=== PATIENT | female | born 1960 | race Caucasian/White ===

== ENCOUNTER 2017-06-12 13:40 | Day surgery (SDC) | payer OTHER ==
[~2017-06-12] VITALS: Ht 144.8 cm; Wt 51.9 kg
[2017-06-12 14:20] VITALS: Ht 144.8 cm; Wt 51.9 kg
[2017-06-12] MEDS ORDERED: ACAR25TA8 PO (14:30)
[2017-06-12] MEDS ORDERED: PRAV10TA43 PO (14:30)
[2017-06-12] MEDS ORDERED: BENA20TA48 PO (14:30)
[2017-06-12 14:42] VITALS: BP 157/70; PULSE 61; RESP 12
--- NOTE | 2017-06-12 15:04 | OPPN ---
Date/Time of Note Date/Time of Note DATE: 06/12/17 TIME: 15:02 Operative Report Preoperative Diagnosis screening colonoscopy Postoperative Diagnosis normal colon Operation/Procedure Performed colonoscopy Surgeon see signature line scheduling assistant none Anesthesia: moderate sedation (versed 2mg/fentanyl 50 mcg total moderate sedation time 15 mts) Estimated blood loss: none Transfusion Required none Specimen none Grafts/Implants none Complications none DONTA MENESES MD Jun 12, 2017 15:04
[2017-06-12] MEDS ORDERED: FENTAnyl 50 MCG/ML VIAL ONE (15:05)
[2017-06-12] MEDS ORDERED: MIDAZOLAM 1 MG/ML 2 ML INJ ONE (15:06)
--- NOTE | 2017-06-12 19:08 | GILP ---
DATE OF PROCEDURE: 06/12/2017 PREOPERATIVE DIAGNOSIS: Screening colonoscopy. PROCEDURE DONE: Colonoscopy up to cecum. SEDATION: Moderate sedation, 15 minutes total time. She received 2 mg IV Versed and 50 mcg of fent anyl. PROCEDURE IN DETAIL: After obtaining informed consent, she was sedated, monitored on oximetry, EKG , blood pressure. Rectal exam done, which was unremarkable. Advanced a pediatric colonoscope all t he way to cecum. Appendiceal opening and ileocecal valve identified. Tortuous colon was noted, lef t colon and right colon. Cecum, ascending colon normal. Transverse colon, descending colon normal. Sigmoid colon normal except for tortuosity. The rectum, including retroflexion, normal. Grade I hemorrhoids noted. Upon removal of scope, patient had no complication. PLAN: Will be to advise her to follow with you. Yearly occult blood and repeat colonoscopy in 10 y ears. Dictated By: DONTA ENCARNACION Conf#: [id number] DID#: [id number] CC: Primary Care Physician;*EndCC*
== END 2017-06-12 15:29 | disposition home or self-care (01) ==
LOC: GIL 13:40
PROVIDERS: ATTEND Internal Medicine
DX: Z12.11 Encounter for screening for malignant neoplasm of colon (principal); E11.9 Type 2 diabetes mellitus without complications; I10 Essential (primary) hypertension; E78.5 Hyperlipidemia, unspecified
CPT/HCPCS: 45378; 82962; J2250; J3010; Z7610